=== PATIENT | female | born 1990 | race Caucasian/White ===

== ENCOUNTER 2017-02-01 12:20 | Observation (INO) | payer OTHER ==
[~2017-02-01] VITALS: Ht 160 cm; Wt 63.5 kg
[~2017-02-01 12:20] MED LIST: PREN1TAB89 PO
[2017-02-01 12:42] VITALS: BP 128/83
== END 2017-02-01 15:35 | disposition home or self-care (01) ==
LOC: EDSEX → 4S 12:20
PROVIDERS: ADMIT Obstetrics & Gynecology; ATTEND Obstetrics & Gynecology
DX: O46.93 Antepartum hemorrhage, unspecified, third trimester (principal); Z3A.35 35 weeks gestation of pregnancy
CPT/HCPCS: 59025; 76811; 76812; G0378

== ENCOUNTER 2017-02-09 10:55 | Inpatient (IN) | payer OTHER ==
[~2017-02-09] VITALS: Ht 160 cm; Wt 65.3 kg
[2017-02-09] MEDS ORDERED: FERR-82 PO (11:29)
[2017-02-09 12:18] VITALS: BP 132/87
[2017-02-09] MEDS ORDERED: METOCLOPRAMIDE HCL 5 MG/ML 2 ML VIAL IVP ONE (14:15)
[2017-02-09] MEDS ORDERED: RINGERS SOLUTION,LACTATED 1,000 ML IV ONE ×2 (14:15→19:00)
[2017-02-09] MEDS ORDERED: CITRIC ACID/SODIUM CITRATE 30 ML SOLUTION UDCUP PO ONE (14:15)
[2017-02-09] MEDS ORDERED: FentaNYL CITRATE-PF 100 MCG/2 ML VIAL ONE (14:27)
[2017-02-09] MEDS ORDERED: CeFAZolin 2 GM/DEXTROSE 50 ML IV ONE (14:27)
[2017-02-09] MEDS ORDERED: MORPHINE SULFATE/PF 0.5 MG/ML 10 ML AMP ONE (14:28)
[2017-02-09 15:07] LABS: BASOPHILS % (AUTO) 0.6 % (0.0-2.0); EOSINOPHILS % (AUTO) 1.1 % (1.0-6.0); HEMATOCRIT 32.7 % (36-46); LYMPHOCYTES # (AUTO) 1.7 K/uL (1.0-4.8); LYMPHOCYTES % (AUTO) 21.1 % (22.0-44.0); MEAN CORPUSCULAR HEMOGLOBIN 27.2 pg (26.0-34.0); MEAN CORPUSCULAR HGB CONC 33.6 G/dL (31.0-37.0); MEAN CORPUSCULAR VOLUME 81 fL (80-100); MONOCYTES # (AUTO) 0.4 K/uL (0.1-1.0); MONOCYTES % (AUTO) 4.6 % (2.0-9.0); NEUTROPHILS # (AUTO) 5.9 K/uL (1.8-7.7); NEUTROPHILS % (AUTO) 72.6 % (40.0-70.0); RED BLOOD CELL COUNT(AUTO) 4.04 MIL/uL (4.00-5.20); RED CELL DISTRIBUTION WIDTH 22.9 % (11.5-14.5); WHITE BLOOD COUNT (AUTO) 8.1 K/uL (4.5-11.0)
[2017-02-09] MEDS ORDERED: GUM MASTIC/STORAX/MSAL/ALCOHOL LIQUID 0.67 ML VIAL TP ONE (16:11)
[2017-02-09] MEDS ORDERED: ONDANSETRON HCL 4 MG/2 ML VIAL IVP PRN ×2 (17:00)
[2017-02-09] MEDS ORDERED: MEPERIDINE-PF 25 MG/ML SYRINGE IVP PRN (17:00)
[2017-02-09] MEDS ORDERED: NALOXONE HCL 0.4 MG/ML VIAL IVP PRN (17:00)
[2017-02-09] MEDS ORDERED: PROMETHAZINE HCL 12.5 MG in SODIUM CHLORIDE 0.9% 50 ML IV PRN (17:00)
[2017-02-09] MEDS ORDERED: DiphenhydrAMINE HCL 50 MG/ML VIAL IVP PRN ×2 (17:00)
[2017-02-09] MEDS ORDERED: FentaNYL CITRATE-PF 100 MCG/2 ML VIAL IVP PRN ×4 (17:00)
[2017-02-09] MEDS ORDERED: NALBUPHINE HCL 10 MG/ML VIAL IVP PRN ×3 (17:00)
[2017-02-09] MEDS ORDERED: LACTATED RINGERS IV ONE (17:08)
[2017-02-09] MEDS ORDERED: OXYTOCIN IV ONE (17:08)
[2017-02-09] MEDS ORDERED: RINGERS SOLUTION,LACTATED 0 ML IV ONE (17:12)
[2017-02-09 17:29] LABS: RBC MORPHOLOGY COMMENT ABNORMAL RBC MORPH
[2017-02-09] MEDS ORDERED: OXYTOCIN 20 UNITS/LACT RINGERS 1,000 ML IV SCH (18:34)
[2017-02-09] MEDS ORDERED: OxyCODONE HCL/ACETAMINOPHEN 5-325 MG TABLET PO PRN ×2 (18:45)
[2017-02-09] MEDS ORDERED: GLYCERIN/WITCH HAZEL LEAF 40 PADS JAR TP PRN (18:45)
[2017-02-09] MEDS ORDERED: OXYGEN THERAPY IH SCH ×4 (20:00)
[2017-02-09] MEDS: KETOROLAC TROMETHAMINE 30 MG/ML VIAL IVP SCH (22:17)
[2017-02-10] MEDS: DEXTROSE 5%-0.45% SODIUM CHL 1,000 ML IV SCH ×3 (00:34→09:22)
[2017-02-10] MEDS ORDERED: PROPOFOL 1% 20 ML VIAL IVP ONE (01:50)
[2017-02-10] MEDS ORDERED: OXYTOCIN 10 UNITS/ML VIAL IM ONE (01:50)
[2017-02-10] MEDS ORDERED: KETOROLAC TROMETHAMINE 60 MG/2 ML VIAL IM ONE (01:50)
[2017-02-10] MEDS ORDERED: ONDANSETRON HCL 4 MG/2 ML VIAL IVP ONE (01:50)
[2017-02-10] MEDS ORDERED: DEXAMETHASONE SOD PHOS 4 MG/ML VIAL IVP ONE (01:50)
[2017-02-10] MEDS ORDERED: PHENYLEPHRINE HCL 10 MG/ML VIAL IVP ONE (01:50)
[2017-02-10] MEDS: KETOROLAC TROMETHAMINE 30 MG/ML VIAL IVP SCH (04:12)
[2017-02-10 05:59] LABS: HEMATOCRIT 21.6 % (36-46); HEMOGLOBIN 7.1 g/dL (12.0-16.0); LYMPHOCYTES % (AUTO) 14.3 % (22.0-44.0); MEAN CORPUSCULAR HEMOGLOBIN 27.4 pg (26.0-34.0); MEAN CORPUSCULAR HGB CONC 32.7 G/dL (31.0-37.0); MEAN CORPUSCULAR VOLUME 84 fL (80-100); NEUTROPHILS % (AUTO) 80.5 % (40.0-70.0); RED BLOOD CELL COUNT(AUTO) 2.58 MIL/uL (4.00-5.20); RED CELL DISTRIBUTION WIDTH 23.9 % (11.5-14.5); WHITE BLOOD COUNT (AUTO) 16.7 K/uL (4.5-11.0)
[2017-02-10 06:00] LABS: BASOPHILS % (AUTO) 0.2 % (0.0-2.0); EOSINOPHILS % (AUTO) 0.1 % (1.0-6.0); LYMPHOCYTES # (AUTO) 2.4 K/uL (1.0-4.8); MONOCYTES # (AUTO) 0.8 K/uL (0.1-1.0); MONOCYTES % (AUTO) 4.9 % (2.0-9.0); NEUTROPHILS # (AUTO) 13.5 K/uL (1.8-7.7)
[2017-02-10 07:47] LABS: RBC MORPHOLOGY COMMENT ABNORMAL RBC MORPH
[2017-02-10] MEDS: MAGNESIUM HYDROXIDE SUSPENSION 30 ML UDCUP PO SCH ×2 (09:25→22:02)
[2017-02-10] MEDS: SOD FERRIC GLUC COMPLX/SUCROSE 125 MG in SODIUM CHLORIDE 0.9% 100 ML IV SCH (11:50)
[2017-02-10] MEDS: IBUPROFEN 600 MG TABLET PO PRN ×2 (17:36→17:37)
[2017-02-11] MEDS: MAGNESIUM HYDROXIDE SUSPENSION 30 ML UDCUP PO SCH ×2 (09:32→21:14)
[2017-02-11] MEDS: IBUPROFEN 600 MG TABLET PO PRN ×2 (09:32→21:14)
[2017-02-11] MEDS: SOD FERRIC GLUC COMPLX/SUCROSE 125 MG in SODIUM CHLORIDE 0.9% 100 ML IV SCH (11:39)
[2017-02-12] MEDS: IBUPROFEN 600 MG TABLET PO PRN (03:53)
[2017-02-12 07:32] LABS: BASOPHILS % (AUTO) 0.6 % (0.0-2.0); EOSINOPHILS % (AUTO) 2.9 % (1.0-6.0); LYMPHOCYTES # (AUTO) 2.3 K/uL (1.0-4.8); LYMPHOCYTES % (AUTO) 22.1 % (22.0-44.0); MEAN CORPUSCULAR HGB CONC 33.6 G/dL (31.0-37.0); MEAN CORPUSCULAR VOLUME 83 fL (80-100); MONOCYTES # (AUTO) 0.5 K/uL (0.1-1.0); MONOCYTES % (AUTO) 5.2 % (2.0-9.0); NEUTROPHILS # (AUTO) 7.2 K/uL (1.8-7.7); NEUTROPHILS % (AUTO) 69.2 % (40.0-70.0); RED BLOOD CELL COUNT(AUTO) 2.08 MIL/uL (4.00-5.20); RED CELL DISTRIBUTION WIDTH 25.3 % (11.5-14.5); WHITE BLOOD COUNT (AUTO) 10.5 K/uL (4.5-11.0)
[2017-02-12 07:34] LABS: HEMOGLOBIN 5.8 g/dL (12.0-16.0)
[2017-02-12 07:38] LABS: HEMATOCRIT 17.3 % (36-46)
[2017-02-12 08:35] LABS: RBC MORPHOLOGY COMMENT ABNORMAL RBC MORPH
[2017-02-12] MEDS: MAGNESIUM HYDROXIDE SUSPENSION 30 ML UDCUP PO SCH (09:00)
[2017-02-12] MEDS ORDERED: DSS100 PO (10:23)
[2017-02-12] MEDS ORDERED: FERR-89 PO (10:23)
[2017-02-12] MEDS ORDERED: IBUP-2071 PO (10:23)
[2017-02-12] MEDS ORDERED: PERCT PO (10:23)
[2017-02-12] MEDS: SOD FERRIC GLUC COMPLX/SUCROSE 125 MG in SODIUM CHLORIDE 0.9% 100 ML IV SCH (11:18)
== END 2017-02-12 13:10 | disposition home or self-care (01) | DRG 765 ==
LOC: 4S 10:55 → OBSVTOIN 10:55 → 4S 17:53
PROVIDERS: ADMIT Obstetrics & Gynecology; ATTEND Obstetrics & Gynecology
PROC: 10D00Z1 Extraction of Products of Conception, Low, Open Approach (ICD-10-PCS; principal; 2017-02-09)
DX: O32.1XX0 Maternal care for breech presentation, not applicable or unspecified (principal); O30.003 Twin pregnancy, unspecified number of placenta and unspecified number of amniotic sacs, third trimester; Z37.2 Twins, both liveborn; O42.913 Preterm premature rupture of membranes, unspecified as to length of time between rupture and onset of labor, third trimester; Z3A.36 36 weeks gestation of pregnancy; Z88.0 Allergy status to penicillin; Z88.2 Allergy status to sulfonamides; Z91.040 Latex allergy status
CPT/HCPCS: 76816; 86850; 86900; 86901; 87081; 88307; J0690; J1100; J1885; J2274; J2370; J2405; J2590; J2704; J2765; J2916; J3010; J7050; J7120